=== PATIENT | female | born 1990 | race Caucasian/White ===

== ENCOUNTER 2018-01-26 15:59 | Emergency (ER) | payer OTHER ==
[~2018-01-26] VITALS: Ht 167.6 cm; Wt 56.3 kg
[~2018-01-26 15:59] MED LIST: MTR600X PO; NO HOME MEDS; PRENTAB26 PO
[2018-01-26 16:03] VITALS: TEMP 36.9; Ht 167.6 cm; Wt 56.3 kg
[2018-01-26] MEDS ORDERED: SODIUM CHLORIDE 0.9% 1000ML 1,000 ML IV ONE (16:45)
[2018-01-26 17:05] LABS: BASO % 0.7 %; BASO ABS # 0.03 K/uL (0-0.2); EOS % 0.4 %; EOS ABS # 0.02 K/uL (0-0.5); HEMATOCRIT 41.2 % (37-47); HEMOGLOBIN 14.1 g/dL (12.0-16.0); IG# 0.01 K/uL (0.00-0.02); MEAN CELL VOLUME 91.4 fL (80-100); MEAN CORPUSCULAR HEMOGLOBIN 31.3 pg (25-34); MEAN CORPUSCULAR HGB CONC 34.2 g/dl (32-36); MEAN PLATELET VOLUME 11.1 fL (7.4-10.4); MONO % 6.7 %; MONO ABS # 0.31 K/uL (0.11-0.59); NEUT ABS # 3.04 K/uL (1.4-6.5); PLATELET COUNT 211 K/uL (130-400); RED CELL DISTRIBUTION WIDTH CV 13.2 % (11.5-14.5); RED CELL DISTRIBUTION WIDTH SD 44.1 fL (36.4-46.3); WHITE BLOOD COUNT 4.61 K/uL (4.8-10.8)
[2018-01-26] MEDS ORDERED: MULT-506 PO (17:09)
--- NOTE | 2018-01-26 17:12 | DIAGNOSTIC IMAGING REPORT ---
PA CHEST WITH ABDOMINAL SERIES CLINICAL HISTORY: Epigastric abdominal pain. Nausea and vomiting. Diarrhea. FINDINGS: A PA chest radiograph is obtained. No prior studies are available for comparison at the time of dictation. The cardiomediastinal silhouette is unremarkable. The lungs and pleural spaces are clear. No pneumothorax is seen. The bony thorax is grossly intact. Supine and erect abdominal radiographs are correlated with abdominal CT dated 10/30/2015. Suture material and surgical clips project over the right lower quadrant. There is a nonobstructed abdominal bowel gas pattern. Mild colonic fecal retention is observed. No evidence of intraperitoneal free air is seen. There are no abnormal abdominal calcifications. A naval piercing is noted. The lumbosacral spine and bony pelvis appear intact. IMPRESSION: 1. No active disease in the chest. 2. Nonobstructed abdominal bowel gas pattern. Electronically signed by: Ashok Bauer M.D. 01/26/2018 5:11 PM Dictated Date/Time: 01/26/2018 5:09 PM
[2018-01-26 17:35] LABS: CALCIUM 8.4 mg/dl (8.5-10.1); CREATININE 0.64 mg/dl (0.60-1.20); POTASSIUM 3.6 mmol/L (3.5-5.1)
[2018-01-26 17:38] LABS: TOTAL PROTEIN 7.4 gm/dl (6.4-8.2)
--- NOTE | 2018-01-26 17:38 | EMERGENCY ROOM VISIT NOTE ---
History First contact with patient: 16:08 Chief Complaint: ABDOMINAL PAIN Stated Complaint: STOMACH PAIN Nursing Triage Summary: upper mid epigastric discomfort since tuesday. also having nausea and diarrhea History of Present Illness The patient is a 27 year old female who presents to the Emergency Room with complaints of nausea, vomiting, diarrhea and epigastric pain that has been going on for the last 4 days. The diarrhea has been worse than the vomiting. She denies any hematemesis or blood in her stool. She is also experiencing a burning in the epigastrium. Her pain is worse with movement. She has had some body aches and chills. She denies any sick contacts. No recent travel or antibiotic use. Review of Systems 10 system review performed and negative unless noted in HPI or below Past Medical/Surgical History Medical Problems: (1) Active labor at term Social History Smoking Status: Current Every Day Smoker Current/Historical Medications Scheduled Dicyclomine Hcl (Bentyl), 1 CAP PO TID Multivitamin (Multivitamin), 1 TAB PO DAILY Ondasetron Odt (Zofran Odt), 4 MG SL Q6H Physical Exam Vital Signs Date Time Temp Pulse Resp B/P (MAP) Pulse Ox O2 Delivery O2 Flow Rate FiO2 01/26/18 18:26 66 20 110/55 97 01/26/18 17:11 61 01/26/18 16:03 36.9 81 16 120/60 99 Room Air Physical Exam VITALS: Vitals are noted on the nurse's note and reviewed by myself. Vital signs stable. GENERAL: 27-year-old female, in no acute distress, nondiaphoretic, well- developed well-nourished. SKIN: The skin was without rashes, erythema, edema, or bruising. HEAD: Normocephalic atraumatic. MOUTH: Mucous membranes slightly dry NECK: Supple without nuchal rigidity. No lymphadenopathy. Cervical spine is nontender. No JVD. HEART: Regular rate and rhythm without murmurs gallops or rubs. LUNGS: Clear to auscultation bilaterally without wheezes, rales or rhonchi. No accessory muscle use. ABDOMEN: Positive bowel sounds x 4.Soft, mild diffuse tenderness to palpation. No focal tenderness. No guarding or rebound tenderness. MUSCULOSKELETAL: No muscle atrophy, erythema, or edema noted. Strength 5/5 throughout. NEURO: Patient was alert and oriented to person place and time. Normal sensation to touch. No focal neurological deficits. Medical Decision & Procedures ER Provider Diagnostic Interpretation: Chest/abdominal x-ray IMPRESSION: 1. No active disease in the chest. 2. Nonobstructed abdominal bowel gas pattern. Electronically signed by: Ashok Bauer M.D. 01/26/2018 5:11 PM Dictated Date/Time: 01/26/2018 5:09 PM The status of this report is Signed. Draft = Not yet reviewed or approved by Radiologist. Signed = Reviewed and approved by Radiologist. <AttendingPhy></AttendingPhy> <FamilyPhy>No Doctor, Assigned</FamilyPhy> < PrimaryPhy>No Doctor, Assigned</PrimaryPhy> <UnitNumber>[id number]</UnitNumber> <VisitNumber>[id number]</VisitNumber> <PatientName>BURTCAROLYN M</PatientName> <DateOfBirth>1990</DateOfBirth> <Location>[facility]</Location> <ServiceDate></ServiceDate> <MNE>ESINDI</MNE> <OrderingPhy>Uinque Zuñiga PA-C</ OrderingPhy> <OrderingPhyMNE>f rep ord dr villalba</OrderingPhyMNE> <DictatingPhyMNE> f rep dict dr villalba</DictatingPhyMNE> <CCListMNE>f rep ct mne</CCListMNE> < AdmittingPhyMNE>f pt admit dr villalba</AdmittingPhyMNE> <AttendingPhyMNE>f pt attend dr villalba</AttendingPhyMNE> Laboratory Results 01/26/18 16:30 Red Blood Count 4.51, Mean Corpuscular Volume 91.4, Mean Corpuscular Hemoglobin 31.3, Mean Corpuscular Hemoglobin Concent 34.2, Mean Platelet Volume 11.1, Neutrophils (%) (Auto) 66.0, Lymphocytes (%) (Auto) 26.0, Monocytes (%) (Auto) 6.7, Eosinophils (%) (Auto) 0.4, Basophils (%) (Auto) 0.7, Neutrophils # (Auto) 3.04, Lymphocytes # (Auto) 1.20, Monocytes # (Auto) 0.31, Eosinophils # (Auto) 0.02, Basophils # (Auto) 0.03 01/26/18 16:30 Test 01/26/18 16:30 White Blood Count 4.61 K/uL (4.8-10.8) Red Blood Count 4.51 M/uL (4.2-5.4) Hemoglobin 14.1 g/dL (12.0-16.0) Hematocrit 41.2 % (37-47) Mean Corpuscular Volume 91.4 fL (80-100) Mean Corpuscular Hemoglobin 31.3 pg (25-34) Mean Corpuscular Hemoglobin Concent 34.2 g/dl (32-36) Platelet Count 211 K/uL (130-400) Mean Platelet Volume 11.1 fL (7.4-10.4) Neutrophils (%) (Auto) 66.0 % Lymphocytes (%) (Auto) 26.0 % Monocytes (%) (Auto) 6.7 % Eosinophils (%) (Auto) 0.4 % Basophils (%) (Auto) 0.7 % Neutrophils # (Auto) 3.04 K/uL (1.4-6.5) Lymphocytes # (Auto) 1.20 K/uL (1.2-3.4) Monocytes # (Auto) 0.31 K/uL (0.11-0.59) Eosinophils # (Auto) 0.02 K/uL (0-0.5) Basophils # (Auto) 0.03 K/uL (0-0.2) RDW Standard Deviation 44.1 fL (36.4-46.3) RDW Coefficient of Variation 13.2 % (11.5-14.5) Immature Granulocyte % (Auto) 0.2 % Immature Granulocyte # (Auto) 0.01 K/uL (0.00-0.02) Urine Color YELLOW Urine Appearance CLEAR (CLEAR) Urine pH 7.5 (4.5-7.5) Urine Specific Stout 1.013 (1.000-1.030) Urine Protein NEG (NEG) Urine Glucose (UA) NEG (NEG) Urine Ketones NEG (NEG) Urine Occult Blood NEG (NEG) Urine Nitrite NEG (NEG) Urine Bilirubin NEG (NEG) Urine Urobilinogen NEG (NEG) Urine Leukocyte Esterase NEG (NEG) Urine Test NEG (NEG) Anion Gap 5.0 mmol/L (3-11) Est Creatinine Clear Calc Drug Dose 118.4 ml/min Estimated GFR () 142.7 Estimated GFR (Non- 123.2 BUN/Creatinine Ratio 13.7 (10-20) Calcium Level 8.4 mg/dl (8.5-10.1) Total Bilirubin 0.8 mg/dl (0.2-1) Aspartate Amino Transf (AST/SGOT) 15 U/L (15-37) Alanine Aminotransferase (ALT/SGPT) 19 U/L (12-78) Alkaline Phosphatase 59 U/L (45-117) Total Protein 7.4 gm/dl (6.4-8.2) Albumin 4.0 gm/dl (3.4-5.0) Globulin 3.4 gm/dl (2.5-4.0) Albumin/Globulin Ratio 1.2 (0.9-2) Lipase 112 U/L (73-393) Medications Administered Medications (Trade) Dose Ordered Sig/Elham Route Start Time Stop Time Status Last Admin Dose Admin Sodium Chloride 1,000 ml @ 999 mls/hr Q1H1M ONCE IV 01/26/18 16:45 01/26/18 17:45 DC 01/26/18 16:44 999 MLS/HR ED Course Patient was seen and examined Vital signs including blood pressure were reviewed medications list was verified with patient Labs were obtained, and a saline lock was established The patient was hydrated with 1 L of normal saline. She declined pain or nausea medication. Upon reevaluation, the patient was resting comfortably in bed. We thoroughly reviewed her workup. She and her mother voiced understanding. They are comfortable being discharged home. I reviewed discharge instructions the patient. They voiced understanding and had no further questions. Medical Decision DIFFERENTIAL DIAGNOSIS: Gastroenteritis, Hepatitis, cholecystitis, cholangitis, biliary colic, pancreatitis, appendicitis, inguinal hernia, nephrolithiasis, inflammatory bowel disease, mesenteric adenitis, peptic ulcer disease, GERD, gastritis, pancreatitis,, bowel obstruction, splenic infarct, diverticulitis, mesenteric ischemia, metabolic, peritonitis, among others. This patient is a 27-year-old female that presents to the emergency department with nausea, vomiting, diarrhea and epigastric abdominal pain. On exam, she had mild diffuse tenderness. She had no focal tenderness or rebound tenderness. I do not suspect an acute abdomen. My thought was this was likely a viral GI illness. Her white blood cell count is low normal. LFTs within normal limits. Lipase is also within normal limits. I believe she is stable to be discharged home as she is tolerating liquids. Patient will be given a short course of Zofran and Bentyl. She will stick to a clear liquid diet for this evening. The patient and the patient's mother are comfortable with this plan. They also agree to return to the emergency department with worsening symptoms. This chart was completed in part utilizing [employer] English Speech Voice Recognition software. Attempts were made to minimize the grammatical errors, random word insertions, pronoun errors and incomplete sentences. Any formal questions or concerns about the content, text or information contained within the body of this dictation should be directly addressed to the provider for clarification. Medication Reconcilliation Current Medication List: was personally reviewed by me Blood Pressure Screening Patient's blood pressure: Normal blood pressure Impression Primary Impression: Vomiting and diarrhea Departure Information Dispostion Home / Self-Care Condition GOOD Prescriptions Ondasetron Odt (ZOFRAN ODT) 4 Mg Tab 4 MG SL Q6H for Nausea, #20 TAB Prov: Unique Zuñiga PA-C 01/26/18 Dicyclomine Hcl (BENTYL) 10 Mg Cap 1 CAP PO TID for stomach pain, #20 CAP Prov: Unique Zuñiga PA-C 01/26/18 Referrals No Doctor, Assigned (PCP) Patient Instructions ED Diet Vomiting Diarrhea, My [facility] Additional Instructions You have been evaluated in the emergency department for vomiting and diarrhea. This is likely a viral GI illness. Please follow a clear liquid diet tonight such as Gatorade, water and broth If you are feeling better tomorrow, please advance to a bland diet such as crackers and toast Please take Zofran 1 tab every 6 hours as needed for nausea Please take Bentyl 1 tab every 8 hours as needed for abdominal cramping Please follow-up with your primary care physician within the next week for a recheck do not hesitate to return to the emergency department with any new, worsening or concerning symptoms; especially Worsening abdominal pain, persistent vomiting or fever Work Instructions Return To Work: 2 days
[2018-01-26] MEDS ORDERED: DICY10CA55 PO (18:10)
[2018-01-26] MEDS ORDERED: ONDA4TAB10 SL (18:10)
[2018-01-26 18:26] VITALS: BP 110/55; PULSE 66; O2SAT 97
== END 2018-01-26 18:26 | disposition home or self-care (01) ==
LOC: C.EDB 16:00 → C.EDA 18:26
DX: R11.2 Nausea with vomiting, unspecified (principal); R19.7 Diarrhea, unspecified; R10.13 Epigastric pain; F17.210 Nicotine dependence, cigarettes, uncomplicated; Z79.899 Other long term (current) drug therapy

== ENCOUNTER 2021-02-24 13:27 | Inpatient (IN) ==
[2021-02-24] MEDS ORDERED: OXYTOCIN 30 UNITS/500 ML BAG IV PRN ×3 (14:04→18:24)
[2021-02-24 14:33] LABS: Hematocrit (blood only) 33.5 % (37-47); Hemoglobin 11.3 g/dL (12.0-16.0); Mean Corpuscular Hgb Conc 33.7 g/dL (32-36); Mean Corpuscular Volume 85.9 fL (80-100); Mean Platelet Volume 10.7 fL (7.4-10.4); Platelet Count 256 K/uL (130-400); RDW Coefficient of Variation 14.4 % (11.5-14.5); RDW Standard Deviation 44.5 fL (36.4-46.3); White Blood Count 9.24 K/uL (4.8-10.8)
--- NOTE | 2021-02-24 14:35 | Anesthesiology Consultation ---
Date of Service February 24, 2021 Assessment & Plan Chart Review Chart Review: Acceptable Risk for Surgery, Patient NOT seen in Pre Admission Testing and Acceptable Risk for Labor Epidural Consults Requested none ASA ASA2 Proposed Anesthesia Anesthesia Type: Labor Epidural and CSE History Height/Weight Height: 5 ft 7 in Weight: 66.678 kg Allergies Allergy/AdvReac Type Severity Reaction Status Date / Time No Known Drug Allergies Allergy Unknown ` Verified 07/17/19 16:23 Medications Home Medications Medication Instructions Recorded Confirmed Last Taken prenat.vits,sapphire,[id number] 1 tab PO DAILY 02/24/21 02/24/21 02/23/21 08:00 [ Vitamin] Past Medical History Medical History No pertinent past medical history Exercise / Class Metabolic Activity II 4-5 Yardwork/Stairs/Walk up hill Past Family History Family History Other Family history non-contributory Past Surgical History Surgical History H/O wisdom tooth extraction (~04/05/07) Hx of appendectomy (~03/09/12) Past Anesthesia History No Hx of Anesthesia Complications and No Family Hx of Anesthesia Complications History of PONV No Hx of PONV and No Hx of Motion Sickness Social History Smoking Status: Former smoker tobacco type: cigarettes Do You Dip or Chew Tobacco: No Hx Alcohol Use: No Hx Substance Use: No Physical Exam Vital Signs Last Vital Signs Temp 36.5 C 02/24/21 13:56 Resp 20 02/24/21 13:56 Testing Laboratory Results 02/24/21 14:18
--- NOTE | 2021-02-24 14:41 | Obstetrical Progress Note ---
Date of Service February 24, 2021 Assessment & Plan Admission and Anticipated Discharge Date Admission Date: February 24, 2021 Subjective Admit Note 31 F P2012 at 40 weeks admitted in active labor. Scant care. GBS is negative. Covid is pending. FHT Cat 1. Cervix 4/70/- 3/posterior/intact/soft/vertex. EFW 7 lbs. Will admit in labor and augment contractions with Oxytocin. Results & Data ([facility]) Vital Signs (Past 12 Hours) Vital Signs Temp Resp 02/24/21 13:56 36.5 C 20
[2021-02-24] MEDS: LACTATED RINGER'S 1,000 ML IV PRN ×2 (14:51→16:20)
[2021-02-24] MEDS ORDERED: SODIUM CHLORIDE 0.9% INJ 10 ML VIAL ONE (15:20)
[2021-02-24] MEDS ORDERED: fentaNYL citrate 100 MCG/2 ML VIAL ONE (15:20)
[2021-02-24] MEDS ORDERED: ePHEDrine sulfate 50 MG/ML AMP ONE (15:20)
[2021-02-24] MEDS ORDERED: BUPIVACAINE 0.25% 30 ML VIAL ONE (15:20)
[2021-02-24] MEDS ORDERED: fentaNYL 2MCG/ML ROPIVACAINE 1.25MG/ML 100 ML BAG EPI ONE (15:21)
[2021-02-24] MEDS ORDERED: ONDANSETRON INJ 2 MG/ML 2 ML VIAL IV PRN (16:06)
[2021-02-24] MEDS ORDERED: fentaNYL 2MCG/ML ROPIVACAINE 1.25MG/ML 100 ML BAG EPI PRN (16:06)
[2021-02-24] MEDS ORDERED: ePHEDrine sulfate 50 MG/ML AMP IV PRN (16:06)
[2021-02-24] MEDS ORDERED: NALOXONE HCL 1 MG in SODIUM CHLORIDE 0.9% 1000ML 1,000 ML IV PRN (16:06)
[2021-02-24] MEDS ORDERED: NALOXONE HCL 0.4 MG/1 ML VIAL/CARP IV PRN (16:06)
[2021-02-24] MEDS ORDERED: diphenhydrAMINE 50 MG/ML VIAL IV PRN (16:06)
[2021-02-24] MEDS ORDERED: PROMETHAZINE HCL 25 MG in SODIUM CHLORIDE 0.9% 50 ML IV PRN (16:06)
[2021-02-24 16:25] LABS: Amphetamines+Metham, Urine Neg (Neg); Barbiturates, Urine Neg (Neg); Benzodiazepine, Urine Neg (Neg); Cocaine, Urine Neg (Neg); MDMA (Ecstacy), Urine Neg (Neg); Methadone, Urine Neg (Neg); Opiate, Urine Neg (Neg); Phencyclidine, Urine Neg (Neg)
--- NOTE | 2021-02-24 18:06 | Delivery Summary ---
Vaginal Delivery Summary Date of Service February 24, 2021 Vaginal Delivery Summary Delivery Note over intact perineum MINESH live male with Apgars 9/9 weight pending. Cord blood obtained followed by spontaneous delivery of intact placenta. No tears. EBL 100 ml. Final sponge and instrument count are correct. Mom and baby stable.
[2021-02-24] MEDS ORDERED: SUPERCREAM 0.870% 15 GM JAR EXT PRN (18:24)
[2021-02-24] MEDS ORDERED: HYDROCORTISONE ACETATE 25 MG SUPP PR PRN (18:24)
[2021-02-24] MEDS ORDERED: bisacodyL 10 MG SUPP PR PRN (18:24)
[2021-02-24] MEDS ORDERED: BENZOCAINE 20% AER SPR 82.5 GM CAN EXT PRN (18:24)
[2021-02-24] MEDS ORDERED: DIPHTHERIA/TETANUS/PERTUSSIS 0.5 ML SYR/VIAL IM ONE (18:24)
--- NOTE | 2021-02-24 19:24 | Anesthesia Procedure Note ---
Date of Service February 24, 2021 Anesthesia Post Epidural Note Vital Signs Vital Signs: Temp Pulse Resp BP Pulse Ox 36.5 C 59 L 20 106/63 93 02/24/21 17:04 02/24/21 19:19 02/24/21 19:04 02/24/21 19:19 02/24/21 17:59 Pain Intensity Lower Abdomen: Pain Intensity: 0 Notes Mental Status: alert / awake / arousable Nausea / Vomiting: adequately controlled Pain: adequately controlled Airway Patency, RR, SpO2: stable & adequate BP & HR: stable & adequate Hydration State: stable & adequate Neuraxial Anesthesia: was administered and sensory block is resolving Anesthetic Complications: no major complications apparent Epidural: Removed without complications and With tip intact
[2021-02-24] MEDS: IBUPROFEN 600 MG TAB PO PRN (20:04)
[2021-02-24] MEDS: DOCUSATE SODIUM 100 MG CAP PO SCH (21:15)
[2021-02-25] MEDS: IBUPROFEN 600 MG TAB PO PRN ×3 (04:25→14:05)
[2021-02-25 06:42] LABS: Hematocrit (blood only) 29.7 % (37-47); Hemoglobin 9.8 g/dL (12.0-16.0); Mean Corpuscular Hemoglobin 28.7 pg (25-34); Mean Corpuscular Volume 86.8 fL (80-100); Mean Platelet Volume 10.6 fL (7.4-10.4); Platelet Count 248 K/uL (130-400); RDW Coefficient of Variation 14.5 % (11.5-14.5); RDW Standard Deviation 45.3 fL (36.4-46.3); Red Blood Count 3.42 M/uL (4.2-5.4); White Blood Count 8.99 K/uL (4.8-10.8)
[2021-02-25] MEDS ORDERED: PRENATAL VITAMIN 1 TAB PO SCH (08:00)
[2021-02-25] MEDS: ACETAMINOPHEN 325 MG TAB PO PRN ×2 (08:07→15:59)
[2021-02-25] MEDS ORDERED: FERROUS SULFATE 325 MG TAB PO SCH (08:15)
--- NOTE | 2021-02-25 08:40 | Obstetrical Progress Note ---
Date of Service February 25, 2021 Assessment & Plan Admission and Anticipated Discharge Date Admission Date: February 24, 2021 Subjective Patient is seen and examined. She feels well, no complaints. Desires to be discharged tonight. Ambulating without dizziness Voiding without difficulty Tolerating regular diet with out N&V Bleeding is minimal No fever/ chills/ CP/ SOB/ N&V/ Leg pain Breast feeding without problems. Vital Signs Temp Pulse Resp BP Pulse Ox 02/25/21 07:51 36.5 C 51 L 18 96/59 L 97 02/25/21 04:20 36.7 C 58 L 18 94/56 L 02/24/21 23:57 36.7 C 54 L 18 95/54 L Lab Results 02/24/21 02/24/21 02/24/21 Range/Units 14:18 14:41 14:41 WBC 9.24 (4.8-10.8) K/uL RBC 3.90 L (4.2-5.4) M/uL Hgb 11.3 L (12.0-16.0) g/dL Hct 33.5 L (37-47) % MCV 85.9 (80-100) fL MCH 29.0 (25-34) pg MCHC 33.7 (32-36) g/dL RDW Std Deviation 44.5 (36.4-46.3) fL RDW Coeff of Ritu 14.4 (11.5-14.5) % Plt Count 256 (130-400) K/uL MPV 10.7 H (7.4-10.4) fL Urine Opiates Screen (Neg) Ur Methadone, Qual (Neg) Urine Barbiturates (Neg) Ur Phencyclidine (PCP) (Neg) U Amphetamin/Meth Scrn (Neg) MDMA (Ecstasy) Screen (Neg) U Benzodiazepines Scrn (Neg) Ur Cocaine Metabolite (Neg) U Marijuana (THC) Screen (Neg) COVID-19 Eval Order Covid19 IDNow atMVAC SARS-CoV-2, RNA, NAAT NEGATIVE (NEGATIVE) 02/24/21 02/25/21 Range/Units 16:00 06:22 WBC 8.99 (4.8-10.8) K/uL RBC 3.42 L (4.2-5.4) M/uL Hgb 9.8 L (12.0-16.0) g/dL Hct 29.7 L (37-47) % MCV 86.8 (80-100) fL MCH 28.7 (25-34) pg MCHC 33.0 (32-36) g/dL RDW Std Deviation 45.3 (36.4-46.3) fL RDW Coeff of Ritu 14.5 (11.5-14.5) % Plt Count 248 (130-400) K/uL MPV 10.6 H (7.4-10.4) fL Urine Opiates Screen Neg (Neg) Ur Methadone, Qual Neg (Neg) Urine Barbiturates Neg (Neg) Ur Phencyclidine (PCP) Neg (Neg) U Amphetamin/Meth Scrn Neg (Neg) MDMA (Ecstasy) Screen Neg (Neg) U Benzodiazepines Scrn Neg (Neg) Ur Cocaine Metabolite Neg (Neg) U Marijuana (THC) Screen Pos H (Neg) COVID-19 Eval Order SARS-CoV-2, RNA, NAAT (NEGATIVE) PE: General: Alert, orientedx3, NAD Abd: soft, NT, fundus firm, below Umbilicus Perineum intact, Lochia rubra minimal Ext; NT, no edema AP: 31 yo s/p , ppd# 1 VSS Afebrile doing well Continue routine care All questions were answered Discussed when to call. Desires d/c D/C home after 6 pm Results & Data ([facility]) Vital Signs (Past 12 Hours) Vital Signs Temp Pulse Resp BP Pulse Ox 02/25/21 07:51 36.5 C 51 L 18 96/59 L 97 02/25/21 04:20 36.7 C 58 L 18 94/56 L 02/24/21 23:57 36.7 C 54 L 18 95/54 L
[2021-02-25] MEDS: DOCUSATE SODIUM 100 MG CAP PO SCH (08:41)
[2021-02-25] MEDS ORDERED: NON-FORMULARY MEDICATION (Prenat.Vits,Cal,Min-Iron-Folic Tablet) PO SCH (09:00)
[2021-02-25] MEDS ORDERED: bisacodyL 5 MG TABEC PO SCH (20:00)
[2021-02-27 01:22] LABS: Marijuana Quant, GCMS Urine 613 ng/mL (<5)
== END 2021-02-25 20:10 | disposition home or self-care (01) | DRG 807 ==
LOC: OPB 13:27 → 4S1 13:28 → OPB 14:04 → 4S1 14:10 → 4S2 20:01